=== PATIENT | male | born 1995 | race Caucasian/White ===

== ENCOUNTER 2020-07-08 14:02 | Emergency (ER) | payer BC, OTHER ==
[~2020-07-08 14:02] MED LIST: BACITRACIN28.4 GM TOP; LODINE CAP 300300 MG PO; NORCO 5-325 TA1 EACH PO
[2020-07-08] MEDS ORDERED: ZOFRAN ODT 4 MG4 MG SL (15:49)
[2020-07-08 16:01] LABS: HEMOGLOBIN 14.3 gm/dl (14.0-17.5); RED BLOOD COUNT 4.97 M/UL (4.20-5.50); WHITE BLOOD COUNT 7.4 K/UL (4.5-11.0)
[2020-07-08 16:25] LABS: BUN/CREATININE RATIO 13 (0-10)
== END 2020-07-08 16:54 | disposition home or self-care (01) ==
LOC: ER1 14:02
PROVIDERS: Emergency Medicine
DX: R11.2 Nausea with vomiting, unspecified (principal)
CPT/HCPCS: 80053; 83690; 85025; 96374; 99284; C9113; J2405; J7030

== ENCOUNTER 2020-11-16 10:58 | Emergency (ER) | payer BC, OTHER ==
[~2020-11-16 10:58] MED LIST changes: +ZOFRAN ODT 4 MG4 MG SL
[2020-11-16 13:08] LABS: BUN/CREATININE RATIO 13 (0-10); HEMOGLOBIN 14.2 gm/dl (14.0-17.5); RED BLOOD COUNT 4.78 M/UL (4.20-5.50); WHITE BLOOD COUNT 5.8 K/UL (4.5-11.0)
[2020-11-16] MEDS ORDERED: ZOFRAN4 MG PO (15:19)
== END 2020-11-16 15:32 | disposition home or self-care (01) ==
LOC: ER1 10:58
PROVIDERS: Emergency Medicine
DX: R11.2 Nausea with vomiting, unspecified (principal); R19.7 Diarrhea, unspecified; E16.2 Hypoglycemia, unspecified; Z20.822 Contact with and (suspected) exposure to COVID-19
CPT/HCPCS: 80053; 81001; 83690; 85025; 96374; 99284; J2405; J7030; U0002

== ENCOUNTER 2021-02-10 07:19 | Emergency (ER) | payer BC ==
[~2021-02-10 07:19] MED LIST changes: +ZOFRAN4 MG PO
[2021-02-10 08:01] LABS: HEMOGLOBIN 13.8 gm/dl (14.0-17.5); RED BLOOD COUNT 4.86 M/UL (4.20-5.50); WHITE BLOOD COUNT 9.7 K/UL (4.5-11.0)
[2021-02-10 08:21] LABS: BUN/CREATININE RATIO 13 (0-10)
[2021-02-10] MEDS ORDERED: IBUPROFEN800 MG PO (09:14)
[2021-02-10] MEDS ORDERED: MEDROL DOSEPAK 24 MG PO (09:14)
== END 2021-02-10 09:22 | disposition home or self-care (01) ==
LOC: ER1 07:19
PROVIDERS: Physician Assistant
DX: J45.901 Unspecified asthma with (acute) exacerbation (principal); J06.9 Acute upper respiratory infection, unspecified; Z20.822 Contact with and (suspected) exposure to COVID-19
CPT/HCPCS: 0240U; 71046; 80053; 85025; 87040; 96374; 99285; J2930; J7030